=== PATIENT | male | born 1970 | race Caucasian/White ===

== ENCOUNTER 2017-05-06 21:44 | Emergency (ER) | payer BC ==
[~2017-05-06] VITALS: Ht 180.3 cm; Wt 126.0 kg
[2017-05-06 21:58] VITALS: BP 135/92; PULSE 80; RESP 20; TEMP 98.4; O2SAT 95
[2017-05-06] MEDS ORDERED: ENAL20TA PO (22:10)
[2017-05-06] MEDS ORDERED: OMEP40CA2 PO (22:10)
--- NOTE | 2017-05-06 22:31 | PD ---
HPI Chief Complaint: Musculoskeletal Complaint Time Seen by Provider: 22:28 Travel History International Travel<30 days: No Contact w/Intl Traveler<30days: No Traveled to known affect area: No History of Present Illness HPI 46-year-old male presents emergency department for evaluation of right knee pain status post twisting injury prior to arrival. Patient reports he was standing in the bed of his truck when he slipped twisting his knee and felt immediate pain and a pop within the medial aspect. Since the injury the patient reports he is able to weight-bear but the knee feels as if it gives out with walking. Patient denies numbness or tingling in the extremity. He reports pain localized to the knee joint. Moderate severity. Relieved with rest. PFSH Past Medical History High Cholesterol: Yes Diminished Hearing: No Hypertension: Yes Immunizations Current: Yes Tetanus Vaccination: Unknown Influenza Vaccination: No Past Surgical History Surgical History: No Previous Surgery Social History Alcohol Use: Yes (beer daily) Tobacco Use: No Substance Use: No Allergies-Medications (Allergen,Severity, Reaction): Coded Allergies: No Known Allergies (Unverified , 05/06/17) Reported Meds & Prescriptions Reported Meds & Active Scripts Active Reported Omeprazole 40 Mg Cap 40 Mg PO DAILY Enalapril (Enalapril Maleate) 20 Mg Tab 20 Mg PO DAILY Review of Systems Except as stated in HPI: all other systems reviewed are Neg General / Constitutional: No: Fever Eyes: No: Visual changes HENT: No: Headaches Cardiovascular: No: Chest Pain or Discomfort Respiratory: No: Shortness of Breath Gastrointestinal: No: Abdominal Pain Genitourinary: No: Dysuria Physical Exam Narrative GENERAL: Well-nourished, well-developed patient. SKIN: Focused skin assessment warm/dry. HEAD: Normocephalic. EYES: No scleral icterus. No injection or drainage. NECK: Supple, trachea midline. No JVD or lymphadenopathy. CARDIOVASCULAR: Regular rate and rhythm without murmurs, gallops, or rubs. RESPIRATORY: Breath sounds equal bilaterally. No accessory muscle use. GASTROINTESTINAL: Abdomen soft, non-tender, nondistended. MUSCULOSKELETAL: No cyanosis, or edema. Right knee: Mild joint effusion present. Tenderness over the medial aspect. The joint is stable. Limited range of motion due to pain. 2+ distal pulses. BACK: Nontender without obvious deformity. No CVA tenderness. Data Data Last Documented VS Vital Signs Date Time Temp Pulse Resp B/P Pulse Ox O2 Delivery O2 Flow Rate FiO2 05/06/17 21:58 98.4 80 20 135/92 95 Orders Knee, [facility] (1 Or 2vws) (05/06/17 ) [facility] Medical Decision Making Medical Screen Exam Complete: Yes Emergency Medical Condition: Yes Differential Diagnosis Knee painfracture versus sprain versus strain versus meniscal injury Narrative Course 46-year-old male presents emergency department for evaluation of right knee pain status post twisting injury impression 1 hour ago. Patient reports he felt immediate pain and a popping sensation within the medial aspect of the knee. He is able to weight-bear but feels as if the knee gives out when walking. On exam the extremity is neurovascular intact. There is a mild joint effusion. The joint is stable. X-ray pending Rosemarie Gonzalez May 06, 2017 22:31
[2017-05-06] MEDS ORDERED: KETOROLAC TROMETHAMINE 60 MG/2 ML (IM) VIAL IM ONE (22:45)
--- NOTE | 2017-05-06 23:13 | RADRPT ---
EXAM DATE/TIME: 05/06/2017 22:38 [facility] COMPARISON: No previous studies available for comparison. INDICATIONS : Right knee pain status post twisting injury. MEDICAL HISTORY : None. SURGICAL HISTORY : None. ENCOUNTER: Initial ACUITY: 1 day PAIN SCORE: 7/10 LOCATION: Right knee. FINDINGS: Large knee joint effusion. No fractures are seen. Bone density is normal and joint space widths are i ntact. CONCLUSION: 1. Large knee joint effusion. Sha Mueller MD on May 06, 2017 at 23:11 Board Certified Radiologist. This report was verified electronically.
[2017-05-06] MEDS ORDERED: NORC5TAB PO (23:33)
--- NOTE | 2017-05-06 23:34 | PD ---
Physical Exam Date Seen by Provider: May 06, 2017 Narrative This patient is being seen for right knee injury. Data Data Last Documented VS Vital Signs Date Time Temp Pulse Resp B/P Pulse Ox O2 Delivery O2 Flow Rate FiO2 05/06/17 21:58 98.4 80 20 135/92 95 Orders Knee, Ltd (1 Or 2vws) (05/06/17 ) Ketorolac Inj (Toradol Inj) (05/06/17 22:45) MDM Supervised Visit with CARMEN: Yes Narrative Course I, Dr. Herrera, have reviewed the advance practice practitioner's documentation and am in agreement, met with the patient face to face, made the diagnosis, and the medical decision making was done by me. *My assessment and Findings: Patient has a right knee effusion. He is tender along the medial aspect of the right knee. Last Impressions Knee X-Ray 05/06/17 0000 Signed Impressions: Service Date/Time: Saturday, May 06, 2017 22:38 - CONCLUSION: 1. Large knee joint effusion. Sha Mueller MD This patient has internal derangement of his right knee. He will be treated with a knee immobilizer and crutches. As needed for pain. Follow-up with orthopedics. Diagnosis Primary Impression: Internal derangement of right knee Referrals: Babak Hernandez MD 3 days Patient Instructions: General Instructions, Knee Immobilizer (DC) Med/Other Pt SpecificInfo: Prescription(s) given Scripts Hydrocodone-Acetaminophen (Arco)5-325 mg Tab1 Tab PO Q4H PRN (PAIN) #15 TAB Ref 0 Prov:Sis Herrera MD 05/06/17 Disposition: 01 DISCHARGE HOME Condition: Stable Sis Herrera MD May 06, 2017 23:34
[2017-05-06] MEDS ORDERED: ACETAMINOPHEN/HYDROcodone 325 MG/5 MG TAB PO ONE (23:45)
[2017-05-07 00:03] VITALS: RESP 18
== END 2017-05-07 00:18 | disposition home or self-care (01) ==
LOC: PHEFT 21:44
DX: M23.91 Unspecified internal derangement of right knee (principal)
CPT/HCPCS: 73560; 96372; 99284; E0113; J1885; L1830